=== PATIENT | female | born 1985 | race Caucasian/White ===

== ENCOUNTER 2016-09-19 00:22 | Emergency (ER) | payer OTHER ==
[~2016-09-19] VITALS: Ht 162.6 cm; Wt 59.1 kg
[~2016-09-19 00:22] MED LIST: FERR325T3 PO; IBUP80TA PO; PERCOCET PO
[2016-09-19 00:28] VITALS: BP 120/76
[2016-09-19] MEDS ORDERED: CIPR-249 PO (00:32)
[2016-09-19] MEDS ORDERED: NEOMYCIN EAR AD (00:32)
[2016-09-19] MEDS ORDERED: CIPRODEX AD (06:36)
== END 2016-09-19 06:52 | disposition home or self-care (01) ==
LOC: M ED 00:22
DX: H60.331 Swimmer's ear, right ear (principal)

== ENCOUNTER 2018-06-29 06:54 | Emergency (ER) | payer OTHER ==
[~2018-06-29] VITALS: Ht 157.5 cm; Wt 57.7 kg
[~2018-06-29 06:54] MED LIST changes: +CIPR-249 PO; +CIPRODEX AD; +NEOMYCIN EAR AD
[2018-06-29 06:55] VITALS: BP_DIAS 56
[2018-06-29] MEDS ORDERED: NS 1,000 ML IV ONE (07:15)
[2018-06-29 07:34] LABS: BASO # 0.1 10^3/uL (0.0-0.2); BASO % 0.4 % (0.0-1.0); EOS # 0.1 10^3/uL (0.0-0.50); EOS % 0.4 % (0.0-3.0); HEMOGLOBIN 8.6 g/dl (12.0-15.5); LYMPH # 1.1 10^3/uL (1.5-4.5); LYMPH % 4.8 % (24.0-44.0); MEAN CORPUSCULAR HEMOGLOBIN 19.8 pg (27.0-33.0); MEAN CORPUSCULAR HGB CONC 27.7 g/dl (32.0-36.5); MEAN CORPUSCULAR VOLUME 71.4 fl (80.0-96.0); MONO # 1.6 10^3/uL (0.0-0.8); NEUTROPHILS # 19.4 10^3/uL (1.8-7.7); NEUTROPHILS % 86.5 % (36.0-66.0); PLATELET COUNT, AUTOMATED 205 10^3/uL (150-450); RED BLOOD COUNT 4.34 10^6/uL (4.00-5.40); WHITE BLOOD COUNT 22.5 10^3/uL (4.0-10.0)
[2018-06-29 07:56] LABS: BLOOD UREA NITROGEN 8 MG/DL (7-18); CALCIUM LEVEL 8.8 MG/DL (8.5-10.1); CARBON DIOXIDE LEVEL 23 MEQ/L (21-32); CHLORIDE LEVEL 107 MEQ/L (98-107); CREATININE FOR GFR 0.67 MG/DL (0.55-1.30); GLOMERULAR FILTRATION RATE > 60.0 (>60); GLUCOSE, FASTING 98 MG/DL (70-100); POTASSIUM SERUM 3.8 MEQ/L (3.5-5.1); SODIUM LEVEL 139 MEQ/L (136-145)
[2018-06-29] MEDS ORDERED: ISOVUE-370 76% 100ML VIAL (Q9967) As Ordered ONE (08:06)
[2018-06-29 08:11] LABS: MONO SCRN NEGATIVE (NEGATIVE)
[2018-06-29] MEDS ORDERED: AMOX500C PO (09:36)
[2018-06-29] MEDS ORDERED: MAGICMW SSP (09:36)
[2018-06-29] MEDS ORDERED: PRED20TA PO (09:37)
[2018-06-29 09:43] VITALS: BP_SYST 108
--- NOTE | 2018-06-29 11:36 | REP ---
MAXILLOFACIAL CT WITH CONTRAST: HISTORY: Sore throat. CONTRAST: Isovue 370, 75 mL. The right frontal sinus is hypoplastic. Minimal mucosal thickening is present in the maxillary and left sphenoid sinus. The remaining sinuses are clear. The osteomeatal units are patent. The middle and inferior nasal turbinates are partially paradoxical. There is minimal deviation of the nasal septum to the left. The cribriform plate, medial lord of the orbits and optic canals are intact. The carotid canals form a segment of the posterolateral lord of the sphenoid sinus. The sphenoid sinus septum inserts into the left internal carotid canal wall. There is mild enlargement of the tonsils. There is extension of the tonsillar enlargement into the soft palate and into the lateral lord of the oropharynx. There is mild mass effect on the oropharynx. The naso- and hypopharynx, and larynx are normal in appearance. The salivary glands are normal in size and density. An enlarged lymph node mass 1.3 cm in width is present in the right internal jugular chain at the level of the rey- and hypopharynx. Enlarged lymph nodes 1.2 and 1.3 cm in width are present in the left internal jugular chain at the level of the rey- and hypopharynx. Small lymph nodes less than 1 cm in size are present in the posterior triangles, submandibular, and submental areas. IMPRESSION: The above findings are consistent with tonsillitis and lymphadenitis. There is mild mass effect on the oropharynx. Electronically Signed by Quentin Pina MD 06/29/2018 11:40 A
--- NOTE | 2018-06-30 13:56 | ED PDOC ---
Post-Departure Follow-Up [facility] [place] [facility] and dr coreas faxed formal report of ct max fac for fu Hermila Vazquez MD June 30, 2018 13:56
== END 2018-06-29 09:47 | disposition home or self-care (01) ==
LOC: M ED 06:54
DX: J03.90 Acute tonsillitis, unspecified (principal)
CPT/HCPCS: 36415; 70487; 80048; 85025; 86308; 87880; 96360; 99284; Q9967

== ENCOUNTER → 2021-03-30 | Outpatient (REF) | payer OTHER ==
[~2021-03-30] MED LIST changes: +AMOX500C PO; +CIPR7.5D5 AD; -CIPRODEX AD; +MAGICMW SSP; +PRED20TA PO
== END ==
LOC: M LAB REF 11:48
PROVIDERS: ATTEND Physician Assistant Medical
DX: J02.9 Acute pharyngitis, unspecified (principal); R53.83 Other fatigue

== ENCOUNTER → 2024-12-17 | Outpatient (CLI) | payer OTHER | LOC: M RAD 13:31 | PROVIDERS: ATTEND Physician Assistant | DX: M79.641 Pain in right hand (principal) ==